=== PATIENT | female | born 1955 | race Caucasian/White ===

== ENCOUNTER → 2019-05-13 | Outpatient (REF) | payer OTHER ==
[~2019-05-13] MED LIST: ASPI81TA26 PO; COLA100C5 PO; LISI-542 PO; METO50TA7 PO; SIMV40TA20 PO; SUPECAP24 PO; VENL150C43 PO; VITA500055 PO
== END ==
LOC: M LAB REF 14:22
PROVIDERS: ATTEND Otolaryngology
DX: H66.002 Acute suppurative otitis media without spontaneous rupture of ear drum, left ear (principal)

== ENCOUNTER → 2019-07-12 | Outpatient (REF) | payer OTHER ==
[2019-07-13 14:20] LABS: THYROGLOBULIN ANTIBODY 22.2 U/ML (<60.0); THYROID PEROXIDASE ANTIBODY < 28.0 U/ML (<60.0)
== END ==
LOC: M LAB REF 12:47
PROVIDERS: ATTEND Internal Medicine
DX: E03.9 Hypothyroidism, unspecified (principal)

== ENCOUNTER → 2019-11-07 | Outpatient (CLI) | payer OTHER ==
--- NOTE | 2019-11-12 00:27 | SLEEPCENT ---
DATE OF PROCEDURE: 11/07/2019 ORDERED BY: BAO Ryder Nocturnal polysomnography was performed for the titration of pressure therapy in this patient with a clinical diagnosis of obstructive sleep apnea syndrome confirmed by home testing revealing a respiratory event index of 5.6. For testing, the patient was fit with a ResMed AirTouch F20 full face mask of small size, 4 cm of water pressure were applied to the circuit and the lights were extinguished. 8 hours and 5 minutes of data were reviewed. There 353.5 minutes of sleep identified. Sleep latency was prolonged at 63 minutes. Rapid eye movement (REM) latency was quite prolonged at 327 minutes. Sleep architecture improved late in the study, and there was one REM cycle noted. Overall sleep efficiency was 73%. The patient's electrocardiogram showed a sinus rhythm with an average heart rate of 50 beats per minute. EEG showed normal waveforms for awake and sleep with some mild coarsening of background, possibly medication effect. Respiratory events were fully palliated with continuous positive airway pressure (CPAP) at a pressure of +7. Some limb activity was noted in the EMG leads. Limb movement arousal index was 12.7. IMPRESSION: Obstructive sleep apnea syndrome (G47.33). RECOMMENDATIONS: Nightly use of pressure therapy 7 cm of water.
== END ==
LOC: M SLEEP 20:00
PROVIDERS: ATTEND Nurse Practitioner Adult Health
DX: G47.33 Obstructive sleep apnea (adult) (pediatric) (principal)

== ENCOUNTER → 2020-08-28 | Outpatient (REF) | payer MEDICARE, OTHER ==
[~2020-08-28] MED LIST changes: -LISI-542 PO; +LISI-898 PO
== END ==
LOC: M LAB REF 12:12
PROVIDERS: ATTEND Internal Medicine
DX: E78.49 Other hyperlipidemia (principal); I10 Essential (primary) hypertension

== ENCOUNTER 2021-05-19 10:05 | Emergency (ER) | payer MEDICARE, OTHER ==
[~2021-05-19] VITALS: Ht 149.9 cm; Wt 70.8 kg
[2021-05-19] MEDS ORDERED: LISI40TA4 PO (10:22)
[2021-05-19] MEDS ORDERED: ATOR1TAB21 PO (10:22)
[2021-05-19 10:43] LABS: HEMATOCRIT 47.9 % (36.0-47.0); HEMOGLOBIN 15.9 g/dl (12.0-15.5); MEAN CORPUSCULAR HEMOGLOBIN 29.6 pg (27.0-33.0); MEAN CORPUSCULAR HGB CONC 33.2 g/dl (32.0-36.5); MEAN CORPUSCULAR VOLUME 89.2 fl (80.0-96.0); PLATELET COUNT, AUTOMATED 343 10^3/uL (150-450); RED BLOOD COUNT 5.37 10^6/uL (4.00-5.40); WHITE BLOOD COUNT 19.1 10^3/uL (4.0-10.0)
[2021-05-19] MEDS ORDERED: ISOVUE-370 76% 100ML VIAL As Ordered ONE (10:48)
--- NOTE | 2021-05-19 10:51 | REP ---
INDICATION: chest pain COMPARISON: Chest CT report dated 03/30/2017 (images not available). TECHNIQUE: Portable AP view of the chest FINDINGS: There is a 6.6 cm curvilinear opacity involving the left mediastinum paralleling the aortic contour and consistent with enlarging thoracic aortic aneurysm and likely increased in size when compared with report from chest CT dated 2017. The cardiac silhouette is normal. Evidence for prior sternotomy. The visualized aerated bilateral lung ruggiero are relatively clear although subtle left basilar atelectasis cannot be excluded. No effusion. No pneumothorax. IMPRESSION: Findings suspicious for enlarging thoracic aortic aneurysm. <Electronically signed by Yaw Blue > 05/19/21 [id number]
--- NOTE | 2021-05-19 11:20 | REP ---
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 TECHNIQUE: Axial contrast enhanced images from the thoracic inlet to the upper abdomen using pulmonary embolus technique with multiplanar re-formations. 75 ml Isovue 370 intravenous contrast material administered without complication. This CT examination was performed using the following dose reduction techniques: Automated exposure control, adjustment of mA and/or kv according to the patient's size, and use of iterative reconstruction technique. FINDINGS: There is a type-A thoracic aortic aneurysm beginning along the proximal aspect of the thoracic aortic arch with relatively symmetric enhancement of the true and false lumens, but with elements of leak causing aneurysm 7.3 cm aneurysmal dilatation with partial thrombus beginning at the level of the distal aortic arch extending through the descending thoracic aorta measuring 4.3 x 5.9 cm at the diaphragmatic hiatus and roughly 3.5 cm maximal diameter through the abdominal aorta with extension into the right common iliac artery measuring 2.3 cm diameter. There is no evidence for rupture or periaortic fluid/stranding. The celiac axis, superior mesenteric artery, and left renal artery demonstrate relatively normal satisfactory perfusion while there is significant decreased perfusion to the right kidney which demonstrates an asymmetric nephrogram and mild atrophy. There is evidence for prior presumed ascending aortic surgical intervention with clips beginning at the aortic root. The heart is normal size without cardiomegaly or pericardial effusion. Pulmonary vasculature appears grossly normal. Bilateral lung ruggiero demonstrate age-related chronic interstitial changes with trace bibasilar atelectasis (left greater than right) and small left pleural effusion are identified. There is no evidence for pneumothorax. Tracheobronchial tree is patent. No obvious axillary, hilar, or mediastinal adenopathy. Surrounding musculoskeletal structures are intact. Evidence for prior sternotomy noted. IMPRESSION: 1. Type A thoracic aortic aneurysm with relatively equal enhancement of the true and false lumens, but with evidence for leak into a thoracoabdominal aneurysm beginning at the level of the distal aortic arch and measuring 7.3 cm maximal diameter tapering to 3.5 cm through the abdominal aorta and extending into the right iliac artery measuring 2.3 cm diameter. There is no evidence for aneurysmal aortic rupture. 2. Associated chronic atrophy and delayed nephrogram to the right kidney due to decreased flow through the right main renal artery. Normal enhancement and flow through the celiac axis, superior mesenteric artery, left renal artery. 3. Minimal bibasilar atelectasis and small left pleural effusion. <Electronically signed by Yaw Blue > 05/19/21 [id number]
--- NOTE | 2021-05-19 11:26 | REP ---
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 This CT examination was performed using the following dose reduction techniques: Automated exposure control, adjustment of mA and/or kv according to the patient's size, and use of iterative reconstruction technique. FINDINGS: There is a type-A thoracic aortic aneurysm beginning along the proximal aspect of the thoracic aortic arch with relatively symmetric enhancement of the true and false lumens, but with elements of leak causing aneurysm 7.3 cm aneurysmal dilatation with partial thrombus beginning at the level of the distal aortic arch extending through the descending thoracic aorta measuring 4.3 x 5.9 cm at the diaphragmatic hiatus and roughly 3.5 cm maximal diameter through the abdominal aorta with extension into the right common iliac artery measuring 2.3 cm diameter. There is no evidence for rupture or periaortic fluid/stranding. The celiac axis, superior mesenteric artery, and left renal artery demonstrate relatively normal satisfactory perfusion while there is significant decreased perfusion to the right kidney which demonstrates an asymmetric nephrogram and mild atrophy. Liver demonstrates fatty infiltration and small sub cm cyst. Spleen, pancreas, gallbladder, bilateral adrenal glands are normal. Right kidney demonstrates satisfactory enhancement with age-related cortical scarring, but no perinephric stranding or hydronephrosis. Right kidney appears atrophic and demonstrates delayed nephrogram due to decreased perfusion related to above-mentioned aneurysm/dissection. The visualized enteric system is without obstruction or acute inflammatory process. No ascites. No free air. No obvious intraperitoneal or retroperitoneal adenopathy. Visualized musculoskeletal structures are intact. IMPRESSION: 1. Thoracoabdominal aortic dissection/aneurysm as described above. No periaortic inflammatory stranding or fluid to suggest rupture. Asymmetric decreased preview macias to the right kidney related to associated vascular compromise. 2. No further acute abdominopelvic pathology appreciated. <Electronically signed by Yaw Blue > 05/19/21 [id number]
[2021-05-19 11:30] LABS: ALBUMIN 4.1 GM/DL (3.2-5.2); BILIRUBIN,DIRECT 0.1 MG/DL (0.0-0.2); BILIRUBIN,TOTAL 0.9 MG/DL (0.2-1.0)
[2021-05-19 11:49] LABS: BASO # 0.1 10^3/uL (0.0-0.2); BASO % 0.3 % (0.0-1.0); EOS % 0.1 % (0.0-3.0); LYMPH # 2.2 10^3/uL (1.5-5.0); LYMPH % 11.6 % (24.0-44.0); MONO # 1.2 10^3/uL (0.0-0.8); MONO % 6.5 % (2.0-8.0); NEUTROPHILS # 15.3 10^3/uL (1.5-8.5); NEUTROPHILS % 81.1 % (36.0-66.0)
[2021-05-19] MEDS ORDERED: niCARdipine IV 40 MG in IV 1 EA IV SCH ×2 (11:50→14:04)
[2021-05-19 12:54] LABS: RSV AMPLIFICATION NEGATIVE (NEGATIVE)
[2021-05-19] MEDS ORDERED: fentaNYL 100 MCG/2 ML INJECTION (J3010) IV PRN (13:15)
[2021-05-19] MEDS ORDERED: NS 1,000 ML IV SCH (13:15)
[2021-05-19 14:30] VITALS: BP 153/65
[2021-05-19] MEDS ORDERED: hydrALAZINE 20MG/ML 1ML VIAL (J0360 PER 20MG) IV ONE (14:35)
[2021-05-19 14:37] VITALS: BP 153/65
--- NOTE | 2021-05-19 19:29 | ECGEPIP ---
[facility] - ED Test Date: 2021-05-19 Pat Name: RODNEY YORK Department: Room: - Gender: Female Change Management Specialist: JULIETA : 1955 Requested By: Jack Dickson Order Number: [id number] Reading MD: Alba Warner Measurements Intervals [place] Rate: 76 P: 60 NC: 172 QRS: -23 QRSD: 98 T: 90 QT: 382 QTc: 429 Interpretive Statements Normal sinus rhythm Possible Left atrial enlargement ST & T wave abnormality, consider anterolateral ischemia increased rate 03/30/17 Electronically Signed on 05-19-2021 19:29:25 EST by Alba Warner
== END 2021-05-19 14:40 | disposition short-term general hospital (02) ==
LOC: M ED 10:05
DX: I16.0 Hypertensive urgency (principal); I71.2 Thoracic aortic aneurysm, without rupture; J91.8 Pleural effusion in other conditions classified elsewhere; I10 Essential (primary) hypertension; E78.5 Hyperlipidemia, unspecified; R94.31 Abnormal electrocardiogram [ECG] [EKG]; Z86.79 Personal history of other diseases of the circulatory system; Z88.8 Allergy status to other drugs, medicaments and biological substances
CPT/HCPCS: 71045; 71275; 74175; 80047; 80076; 83690; 84484; 85027; 87631; 93005; 93041; 94760; 96361; 96365; 96366; 96375; 99291; 99292; J0360; J3010; Q9967